=== PATIENT | male | born 1975 | race Caucasian/White ===

== ENCOUNTER 2020-03-26 15:35 | Outpatient (CLI) | payer OTHER ==
--- NOTE | 2020-03-26 15:25 | SLEEP CARE CONSULTATION ---
Information from patient questionnaire entered by Edilma Agudelo. I have reviewed and concur with the information entered by Edilma Agudelo. This document represents the service I personally performed and the decisions made by me, Destiney Garzon MD, [facility]. History of Present Illness Service Date and Time: 03/26/2020 1500 Reason for Visit: New patient Chief Complaint: reports: Snoring, Excessive daytime sleepiness, Fatigue, Frequent awakenings at night Duration of Symptoms: 3-4 years Usual bedtime: 10 pm Time it takes to fall asleep: 10-15 minutes Snores at night: Yes Observed to quit breathing while asleep: No (not aware) Sleeps alone due to snoring: Yes (sometimes) Number of times waking at night: 3-5 Reasons for waking at night: reports: Snoring, Bathroom, Other (tossing and turning) Toss, Turn, or Twitch while sleeping: Yes Recalls having dreams: No (sometimes) Usually gets out of bed at: 5:45 am for work, 7:30 am other days Feels refreshed in the morning: No Morning headache: Yes Sleepy or fatigued during the day: Yes Ever fallen asleep while driving: Yes Takes day naps: No Dreams during day naps: No Prior sleep studies: No Additional HPI information: I had the pleasure of seeing Mr. Wakefield today regarding the possibility of him having a sleep disorder. As you know, he is a 44 year old gentleman who complains of loud snore and his has seen him quit breathing while asleep. The patient tells me that he normally goes to bed around 10 pm, and it takes him approximately 10 - 15 minutes to fall asleep. He has been told that he snores loudly and irregularly at night. He has never been observed to stop breathing in his sleep. His can still sleep in the same bed. He can recall waking up on the average of 3 - 5 times during the night. Most of the time he wakes up because of having to use the bathroom. He has awakened occasionally because of his own snoring, but not choking, or having to gasp for air. There is a lot of tossing and turning in his sleep. No somniloquy (sleep talking) or somnambulism (sleep walking). Generally, there is no recollection of dreams. In the morning he usually gets up out of the bed around 5:45 7:30 a.m. not feeling refreshed nor rested. He usually does have a morning headache. During the day he complains of feeling sleepy and fatigued. His score on [place] Sleepiness Scale is 18 out of 24. He has fallen asleep while driving and has gone out of the ulises. He usually does not take naps during the day. Upon falling asleep during the day he denies having vivid dreams. He has never had sleep paralysis, experienced cataplexy but reports symptoms of restless leg syndrome. He reports denies having impaired concentration during the day. - Parasomnia Symptoms Ever been unable to move upon waking from sleep: No Ever felt weak in the knees when startled or emotional: No Bothered by creepy, crawly, restless sensations in legs: Yes Problems with memory or concentration: Yes Subjective Initial [place] Sleepiness Scale score: 18 Past Medical History Past Medical History: reports: Impotence, Other (genital herpies, migraines) Social History The patient's occupation is a [employer]. Patient is and lives in [place]. Have you smoked in the past 12 months: No Alcohol use: Yes Alcohol amount and frequency: 2 drinks 2 days a week Caffeine use: Yes Caffeine amount and frequency: 2 drinks 2 days a week Allergies and Home Medications Drug allergies reviewed: Yes Home medication list reviewed: Yes Review of Systems Review of systems same as previous: Yes Ear/Nose/Throat: reports: nose bleeds Physical Exam Height: 5 ft 6 in Weight: 160 lb Body Mass Index: 25.8 BMI Classification: Overweight Impression and Plan IMPRESSION: 1. Obstructive Sleep Apnea-Hypopnea Syndrome, as suggested by history of loud and irregular snoring, frequent awakenings during the night, unrefreshed sleep, cognitive impairment, and daytime hypersomnolence. Pathophysiology of sleep- disordered breathing was discussed. I recommend proceeding to polysomnography to confirm the diagnosis and to assess severity. If he has significant sleep disordered breathing, a manual CPAP titration study will also be performed to find the optimal treatment pressure. I informed the patient of what the sleep studies involve and after some discussion, he agreed to proceed. Plan: 1. Schedule polysomnography + manual CPAP titration study 2. Avoid long distance driving or when feeling sleepy. 3. Avoid alcohol, sedative and muscle relaxant around bedtime. 4. Return in 1 to 2 weeks after the study to discuss results and initiate therapy. Visit Type: Telehealth Video Video Type: Etohum Patient Location: Home Location of Provider: Home Patient agrees and consents to this telehealth visit type: Yes Patient agrees to have their insurance billed: Yes Time Spent with Patient (minutes): 15 Provider Statement: I spent 100% of the Telehealth Video Call with the patient with greater than 50% spent counseling the patient and coordination of care.
== END 2020-03-26 15:36 | disposition home or self-care (01) ==
LOC: SC 15:35
PROVIDERS: ATTEND Internal Medicine Pulmonary Disease
DX: R06.83 Snoring (principal); G47.10 Hypersomnia, unspecified; R53.83 Other fatigue; R51 Headache; G47.8 Other sleep disorders; E66.3 Overweight; Z68.25 Body mass index [BMI] 25.0-25.9, adult

== ENCOUNTER 2020-05-02 20:35 | Outpatient (CLI) | payer OTHER | END 2020-05-02 20:36 | disposition home or self-care (01) | LOC: SC 20:35 | PROVIDERS: ATTEND Internal Medicine Pulmonary Disease | DX: R06.83 Snoring (principal); G47.8 Other sleep disorders; G47.10 Hypersomnia, unspecified; R53.83 Other fatigue; R51 Headache | CPT/HCPCS: 95810 ==

== ENCOUNTER 2020-05-23 10:47 | Outpatient (CLI) | payer OTHER ==
[2020-05-23 11:34] VITALS: BP 110/68
--- NOTE | 2020-05-23 11:34 | SLEEP CARE CONSULTATION ---
Information from patient questionnaire entered by Annabella Colorado. I have reviewed and concur with the information entered by Annabella Colorado. This document represents the service I personally performed and the decisions made by me, Elizabeth Araiza RN, MSN, [employer]. History of Present Illness Service Date and Time: 05/23/2020 1047 Initial [place] Sleepiness Scale score: 18 Current [place] Sleepiness Scale score: 20 Additional HPI information: LOVELY ZAMARRIPA returns for follow up and results of the recently performed polysomnography. I explained the pathophysiology behind obstructive sleep apnea. Patient does not have sleep apnea and was advised how weight gain could increase the risk of developing sleep apnea in the future. I strongly encouraged the patient to lose some weight. Patient has snoring. Snoring can be reduced by weight loss. Weight loss is best achieved with diet consult. Patient instructed to contact PCP for referral. Snoring can also be treated with an oral appliance from a dentist. Advised to check insurance coverage. In addition, an ENT evaluation can be do to see if other treatment is indicated. Patient counseled not drink alcohol less than 4 hours before bedtime as it can increase snoring and apnea. Patient was cautioned about risks of drowsy driving until sleepiness symptoms resolve. Patient denies drowsy driving but has fallen asleep at stop light and awakened. [facility] patient education on snoring and sleep apnea given and reviewed. Sleep Study - Results Type of Sleep Study: Polysomnography Prior sleep studies: Yes Year and Where: [facility] 2019 Polysomnography/Home Sleep Study results: The quality of the study is good. The patient had normal sleep efficiency. The sleep architecture was normal as well. Respiratory monitoring showed no evidence of sleep disordered breathing (AHI = 0.1) or hypoxia (jessica oxygen saturation of 95%). The patient slept adequately in supine position (supine AHI = 0.2; nonsupine = 0.00). Snore was light in intensity. There was no significant periodic leg movement of sleep. Cardiac rhythm was normal sinus r hythm without significant arrhythmia. No abnormal behavior (parasomnia) observed during the night. Allergies and Home Medications Known drug allergies: No Home medication list reviewed: No (no changes) Review of Systems Review of systems same as previous: Yes Physical Exam Blood Pressure: 110/68 Cuff size: long Heart Rate: 60 O2 Saturation: 98 Height: 5 ft 6 in Weight: 162 lb 9.6 oz Body Mass Index: 26.2 BMI Classification: Overweight Impression and Plan 1. Snoring but no significant sleep disordered breathing. Patient advised that often weight loss will reduce snoring as well as apnea risk. An oral appliance can also be used for snoring. This would require a dental consultation. Patient cautioned not to use other online appliances as can cause bite issues. Patient is advised to check if insurance will cover if he considers. An ENT consult can also be helpful to determine if any other treatment is an option. Thus patient advised to follow up with PCP for a referral due to history of broken nose and loud snoring noted by spouse. Snoring can be disruptive not only to spouse sleep but to patient and could be a contributing cause of his sleepiness symptoms. 2. Hypersomnia, etiology unknown. [place] Sleepiness Scale is 20 of 24 and he recently fell asleep at stop light and had to awakened by spouse. Thus patient cautioned not to drive when fatigued and to find alternative means of transportation if needed. He is advised to follow up with PCP for further evaluation to see if due to other medical condition. * Attempt to lose weight * Avoid alcohol consumption near bedtime * The patient is cautioned about driving until sleepiness is completely resolved. * Follow up with PCP for referral to ENT and further evaluation of hypersomnia. * Return in as needed for follow up. Visit Type: In Office Time Spent with Patient (minutes): 20 Provider Statement: I spent 100% of the Face to Face Visit with the patient with greater than 50% spent counseling the patient and coordination of care.
== END 2020-05-23 10:48 | disposition home or self-care (01) ==
LOC: SC 10:47
PROVIDERS: ATTEND Nurse Practitioner Family
DX: R06.83 Snoring (principal); G47.10 Hypersomnia, unspecified; E66.3 Overweight; Z68.26 Body mass index [BMI] 26.0-26.9, adult
CPT/HCPCS: 99212; 99213

== ENCOUNTER 2021-07-30 09:42 | Outpatient (CLI) | payer OTHER ==
--- NOTE | 2021-07-30 15:27 | MRI Report ---
PROCEDURE: Knee LT W/O INDICATIONS: PAIN IN LEFT KNEE TECHNIQUE: Noncontrast sagittal PD fast spin echo and T2 fast spin echo with fat saturation, sagittal 3-D gradie nt sequence with fat saturation; coronal T1 spin echo and PD fast spin echo with fat saturation, and axial PD fast spin echo with fat saturation through the knee. COMPARISON: None. FINDINGS: Image quality: Partially degraded by motion artifact. Menisci: The medial and lateral menisci demonstrate normal morphology and internal signal. The meni scal root ligaments appear intact. Cruciate ligaments: The anterior cruciate ligament graft and posterior cruciate ligaments appear int act. Medial structures: The medial collateral ligament appears intact. Visualized portions of the pes ans erinus tendons appear normal. No abnormal bursal fluid. Lateral structures: The lateral collateral ligament, long and short heads of the biceps femoris tend on appear intact. The popliteus tendon appears normal. Iliotibial band appears normal. Anterior structures: The quadriceps and patellar tendons appear intact. Patellar alignment is akil l. No femoral trochlear dysplasia or ventral trochlear prominence. No edema in the infrapatellar fa t pad. Bones and cartilage: No bone marrow contusions or fractures. The cartilage of the medial and latera l femorotibial compartments, as well as the patellofemoral compartment, appears normal in thickness. Joint space: There is physiologic knee joint fluid. No Garcia?s cyst. Normal appearing synovial pli are incidentally noted. IMPRESSION: 1. Intact ACL graft. 2. No internal derangement. Reviewed by: Mildred Trujillo MD on 07/30/2021 3:26 PM PDT Approved by: Mildred Trujillo MD on 07/30/2021 3:26 PM PDT Station ID: [id number]
== END 2021-07-30 09:43 | disposition home or self-care (01) ==
LOC: DI 09:42
DX: M25.562 Pain in left knee (principal)